=== PATIENT | male | born 1945 | race Caucasian/White ===

== ENCOUNTER 2023-05-11 14:07 | Emergency (ER) | payer OTHER ==
[~2023-05-11] VITALS: Ht 177.8 cm; Wt 78.9 kg
[2023-05-11] MEDS ORDERED: VASOTEC5 MG (14:26)
[2023-05-11] MEDS ORDERED: JANUMET XR 50-1 EACH (14:27)
[2023-05-11 16:05] LABS: HEMATOCRIT 35.4 % (39.0-48.0); HEMOGLOBIN 11.9 g/dL (13-16.00); MEAN CELL VOLUME 85.5 fL (80.0-100.00); MEAN CORPUSCULAR HEMOGLOBIN 28.9 pg (27.00-32.0); MEAN CORPUSCULAR HGB CONC 33.8 g/dl (32.0-36.0); PLATELET COUNT 172 K/uL (150-450); RED BLOOD COUNT 4.14 M/uL (4.00-6.00)
== END 2023-05-11 18:18 | disposition home or self-care (01) ==
LOC: ER 14:07
PROVIDERS: General Practice
DX: U07.1 COVID-19 (principal); E11.9 Type 2 diabetes mellitus without complications; Z79.84 Long term (current) use of oral hypoglycemic drugs; I10 Essential (primary) hypertension